=== PATIENT | male | born 1950 | race Caucasian/White ===

== ENCOUNTER 2023-03-27 14:05 | Outpatient (OUT) | payer MEDICARE, SELFPAY ==
--- NOTE | 2023-03-27 14:23 | XR_ITS ---
[address] [address] Patient Name: JUAN STACY MRN: [id number] date: 1950 Sex: M [facility] Current Patient Location: Accession/Order Number: [id number] Exam Date: 03/27/2023 15:10 Report Date: 03/28/2023 08:16 At the request of: KASI GARZA Procedure: XR chest 2V EXAMINATION: XR chest 2V HISTORY: PRE OP EXAM COMPARISON: 12/25/2020 TECHNIQUE: PA and lateral FINDINGS: LUNGS: No significant pulmonary parenchymal abnormalities. VASCULATURE: No increased pulmonary vasculature. PLEURA: No pneumothorax, effusion, or pleural thickening. CARDIAC: No cardiomegaly or cardiac silhouette abnormality. MEDIASTINUM: No visible mass or adenopathy. Median sternotomy wires BONES: No fracture or visible bone lesion. OTHER: Negative. XR/XR chest 2V IMPRESSION: No acute cardiopulmonary process Electronically authenticated by: LAURA TAN Date: 03/28/2023 08:16
--- NOTE | 2023-03-27 14:23 | ECG_ITS ---
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
--- NOTE | 2023-03-27 14:57 | P.GSHP_ITS ---
History of Present Illness History of Present Illness Chief complaint: bladder tumor Narrative: Patient presents for preadmission testing. The patient states he had a follow-up with Dr. Ferguson it was determined that he had a recurrence of bladder cancer. The patient states he has not had any urinary complaints, no nausea, vomiting, fever, hematuria, dysuria, or any other complaints. Review of Systems ROS Narrative REVIEW OF SYSTEMS: Negative except as stated in HPI, ten or more systems reviewed. Constitutional: No fever , chills, weakness ENT: No sore throat or epistaxis Cardiovascular: No edema, chest pain, palpitations, or activity intolerance Respiratory: No shortness of breath, cough, or wheezing Musculoskeletal: No joint pain or swelling Gastrointestinal: No abdominal pain, constipation, diarrhea, or vomiting Genitourinary: No dysuria or hematuria Neurological: No numbness, tingling, weakness, or headache Psychiatric: No mood changes [facility] Medical History (Updated 03/27/23 @ 14:48 by Ronel Alberto NP) (11/07/21) Surgical History (Updated 03/27/23 @ 14:48 by Ronel Alberto NP) (11/07/21) Family History (Updated 03/27/23 @ 14:45 by Ronel Alberto NP) Other Asthma Family history of breast cancer Family history of diabetes mellitus Family history of heart disease Family history of hypertension Family history of myocardial infarction Family history of stroke Social History (Updated 03/27/23 @ 14:40 by Ronel Alberto NP) Within the past year, how often did you have a drink containing alcohol: never Score interpretation: A score less than 4 is consistent with normal alcohol consumption. Smoking status: Former smoker Highest level of school completed/degree received: high school graduate Meds Home Medications and Allergies Home Medications Medication Instructions Recorded Confirmed Type atorvastatin 40 mg tablet 40 mg PO DAILY 03/27/23 03/27/23 History clopidogrel 75 mg tablet (Plavix) 75 mg PO DAILY 03/27/23 03/27/23 History ferrous sulfate 325 mg (65 mg 325 mg PO DAILY 03/27/23 03/27/23 History iron) tablet (Feosol) glipizide 10 mg tablet 10 mg PO DAILY 03/27/23 03/27/23 History lactobacillus combination no.4 3 3,000 mmu cells PO DAILY 03/27/23 03/27/23 History billion cell capsule (Probiotic) magnesium oxide 400 mg PO DAILY 03/27/23 03/27/23 History metformin 1,000 mg tablet 1,000 mg PO BID 03/27/23 03/27/23 History metoprolol tartrate 25 mg tablet 25 mg PO BID 03/27/23 03/27/23 History oxybutynin chloride 5 mg 5 mg PO DAILY 03/27/23 03/27/23 History tablet,extended release 24 hr (Ditropan XL) Allergies Allergy/AdvReac Type Severity Reaction Status Date / Time No Known Drug Allergies Allergy Verified 03/27/23 14:27 Exam Narrative Exam Narrative: Constitutional: Awake, alert, comfortable, well-appearing, nontoxic, interactive, vital signs as charted Head: Normocephalic, atraumatic Neck: Supple, normal appearance, normal range of motion, no meningeal signs, no lymphadenopathy Respiratory: No respiratory distress, breath sounds clear Cardiovascular: Regular rate and rhythm, strong and regular heart tones Abdomen: Nontender, normal bowel sounds, soft, no CVA tenderness Musculoskeletal: Normal gait, no swelling or edema Skin: Pale. No rashes or induration, no lesions, only visible skin inspected Neuro: No neurological deficits, normal sensation Psychiatric: Oriented ?3, normal affect Assessment and Plan Assessment and Plan (1) Urothelial carcinoma of kidney: (2) Lesion of bladder: (3) Bladder cancer: Plan Cystoscopy, TURBT, possible laser ablation, left stent placement, installation of mitomycin scheduled with Dr. Patricio 04/02/2023.
[2023-03-27 15:17] LABS: Basophils Percent Auto 0.8 % (0.2-2.0); Eosinophils Absolute Auto 0.2 10^3/uL (0.0-0.7); Eosinophils Percent Auto 3.3 % (0.9-7.0); Hematocrit 36.4 % (42.0-54.0); Hemoglobin 11.9 g/dL (14.0-18.0); Immature Granulocytes Abs Auto 0.04 10^3/uL (0.00-0.03); Immature Granulocytes Pct Auto 0.8 % (0.0-0.5); Lymphocytes Absolute Auto 1.2 10^3/uL (1.2-3.8); Lymphocytes Percent Auto 23.9 % (20.5-60.0); Mean Corpuscular HGB Conc 32.7 g/dL (29.9-35.2); Mean Corpuscular Hemoglobin 31.6 pg (25.9-34.0); Mean Corpuscular Volume 96.6 fL (80.0-94.0); Mean Platelet Volume 9.1 fL (9.5-13.5); Monocytes Absolute Auto 0.6 10^3/uL (0.3-0.8); Monocytes Percent Auto 11.9 % (1.7-12.0); Neutrophils Absolute Auto 2.9 10^3/uL (1.4-6.5); Neutrophils Percent Auto 59.3 % (43.0-75.0); Platelet Count 320 10^3/uL (150-450); Red Blood Count 3.77 10^6/uL (4.70-6.10); Red Cell Distribution Width 13.2 % (11.0-15.0); White Blood Count 4.8 10^3/uL (4.0-11.0)
[2023-03-27 15:21] LABS: Anion Gap 13.6; Calcium 9.4 mg/dL (8.5-10.1); Carbon Dioxide 23.6 mmol/L (21.0-32.0); Chloride 100 mmol/L (98-107); Estimated GFR (African America >60 (>=60); Estimated GFR (Non-African Ame >60 (>=60); Glucose 171 mg/dL (74-106); Potassium 4.2 mmol/L (3.5-5.1); Sodium 133 mmol/L (136-145)
[2023-03-27 15:39] LABS: Partial Thromboplastin Time 28.4 sec (22.3-36.2); Prothrombin Time 9.8 sec (9.0-11.6)
[2023-03-27 15:41] LABS: INR <0.93
== END 2023-03-27 14:06 | disposition home or self-care (01) ==
LOC: PST 14:09
PROVIDERS: PCP Family Medicine; Visit Provider Urology
DX: Z01.818 Encounter for other preprocedural examination (principal); Z01.812 Encounter for preprocedural laboratory examination; Z01.810 Encounter for preprocedural cardiovascular examination; C67.9 Malignant neoplasm of bladder, unspecified; C64.9 Malignant neoplasm of unspecified kidney, except renal pelvis; E11.9 Type 2 diabetes mellitus without complications; Z79.01 Long term (current) use of anticoagulants; I25.2 Old myocardial infarction; R94.31 Abnormal electrocardiogram [ECG] [EKG]; N32.9 Bladder disorder, unspecified
CPT/HCPCS: 36415; 71046; 80048; 85025; 85610; 85730; 93005; G0463

== ENCOUNTER 2023-04-02 12:24 | Day surgery (SDC) | payer MEDICARE, SELFPAY ==
[2023-03-27 14:55] VITALS: BP 125/76; PULSE 70; RESP 16; TEMP 36.8; O2SAT 96; BMI 24.1
[2023-04-02] VITALS (15 sets, daily range): BP systolic 134–168; BP diastolic 72–90; PULSE 59–82; RESP 16–24; TEMP 35.9–36.3; O2SAT 93–99; BMI 24.8
[2023-04-02] MEDS: LACTATED RINGER'S SOLUTION 1,000 ML 50 ML IV ×2 (12:51→14:53)
[2023-04-02] MEDS: CEFAZOLIN SODIUM/DEXTROSE,ISO 2 GM/50 ML PIGGYBACK IV (14:50)
--- NOTE | 2023-04-02 14:51 | PM.URSON ---
Urology Surgery Operative Note Operative Note Procedure Date: 04/02/23 Time Out Performed: yes Pre-op Diagnosis: 1. Recurrent urothelial bladder cancer 2. History of left upper tract urothelial carcinoma 3. Left hydronephrosis of inferior calyx Post-op Diagnosis: other (1. Recurrent urothelial bladder cancer 2. History of left upper tract urothelial carcinoma 3. Left inferior infundibular stenosis of kidney) Procedures performed: 1. Cystoscopy, transurethral resection of bladder tumor (total 3-4 cm resected) 2. Left retrograde pyelogram, left ureteroscopy with laser ablation of inferior pole stricture, stent placement 3. Intravesical mitomycin C instillation Anesthesia: GETA (ETT, Dr. Dukes) Primary Surgeon: Dayanara Patricio Complications: none Estimated blood loss (mL): 0 Findings: -Severe bilobar hypertrophy with elevated bladder neck. 1+ trabeculated bladder. - 4 papillary bladder tumors with exudate/fibrinous debris on the superior wall (1.5x1 cm), dome (<1x1 cm), right anterior wall (5x5 mm), left inferior lateral wall (1x1 cm) all resected and fulgurated. - L RPG with mild distal narrowing, kinked but patent proximal ureter and filling defect of lower pole calyx. No significant hydronephrosis - L URS without recurrence. Tortuous proximal ureter with lateral divot in ureter without exstravastion or tumor. Stenotic left inferior infundibulum without visible tumor, hairline passage of contrast. Attempted holmium laser of stenosis however due to acute angle, unable to fully incise to open up stenosis. Specimens: 1. Bladder tumors 2. Urine for cytology Drains: 18Fr coude catheter, 4.8Fr x 22-30 cm JJ left ureteral stent Indications for Procedures: 72 year old male diagnosed 01/2022 with intermediate risk, recurrent low grade Ta papillary urothelial carcinoma of the bladder s/p TURBTs and induction/maintenance gemcitabine, and left upper tract urothelial carcinoma s/p laser ablation and induction Jelmyto (last 05/2022). He was noted to have multifocal bladder recurrence on last surveillance cystoscopy 03/25/23. CT Urogram 01/31/23 showed delayed nephrogram with dilation of inferior left renal pole calyces representing obstruction from infundibular stenosis vs mass. After discussion of risks/benefits of management options, he elected to proceed today for cystoscopy, TURBT, intravesical mitomycin C instillation, left RPG, ureteroscopy with possible biopsy/laser ablation, possible stent. Risks were discussed including but not limited to bleeding, pain, infection, damage to surrounding structures, inability to treat the tumor/place a stent, and need for additional procedures. The patient understands the stent is not permanent and needs to be removed or exchanged within 3 months to prevent encrustation, infection, invasive procedures and/or permanent renal damage. Detailed description of Procedure: After informed consent was obtained, the patient was brought to the operating room and transferred onto the operating table in supine position. Sequential compression devices were placed on bilateral lower extremities. The patient received the appropriate dose of preoperative IV antibiotics and general anesthesia ET tube was induced. They were positioned in modified dorsolithotomy with the appropriate pressure points padded, prepped, and draped in the usual sterile fashion for this procedure. An operative safety timeout was performed confirming the patient's identity, laterality and procedure, and all present agreed to proceed. I began by inserting a 22 [place] rigid cystoscope into the patient's bladder and performed a thorough cystoscopy with both the 30 and 70 degree lens with the findings as above. The urethra appeared to be normal without evidence of strictures or abnormalities. Bilateral ureters were seen in orthotopic position effluxing urine. Urine was collected for cytology. The cystoscope was removed and a 26 [place] resectoscope was inserted. Bipolar loop electrocautery was used to fully resect the tumors, taking care to obtain muscle in the specimen. Specimens were sent for pathology. Hemostasis was obtained with electrocautery. The bladder was drained and inspected. There was no evidence of any bleeding from the resection beds. I returned to the rigid cystoscope and turned my attention to the left ureteral orifice. A 6- [place] open-ended catheter was inserted into the ureteral orifice and dilute contrast was injected for retrograde pyelogram with findings above. A sensor wire was inserted into the ureter up to the renal pelvis confirmed on fluoroscopy. Next a flexible ureteroscope was inserted over the wire and advanced to the midureter under fluoroscopic guidance, advanced under direct visualization into the renal pelvis. A full renoscopy was performed confirming no tumors or stones, findings as above. A 272 ?m holmium laser fiber was used try and open the stenotic lower infundibulum. Due to the acute angle, circumferential incision was unsuccessful, only part of the scar tissue was incised. Ureteroscope was unable to be advanced into this calyx. The wire was reinserted and a pull down ureteroscopy was performing confirming no tumors were noted. The wire was backloaded through the cystoscope and 4.8Fr x 22-30cm JJ variable length ureteral stent was advanced over the wire, noting adequate curl in the renal pelvis and bladder on fluoroscopic and direct visualization. The bladder was drained and inspected one final time to ensure adequate position of stent and no undue trauma to the bladder was done. The cystoscope was removed and a 18-Gib[place] two way Coude catheter was inserted without difficulty, irrigated until clear. The abdomen was soft and nondistended. 40mg of Mitomycin C in 40ml sterile water was instilled into the bladder and capped. The patient tolerated the procedure well without complication. Patient was extubated and sent to PACU for recovery. Plan: Drain bladder after 1 hour dwell time. Follow up in 5 days for cysto, stent and jimenez removal in the office. Will review pathology and next steps. Will discuss with oncologist Dr. Arenas regarding induction gemcitabine/docetaxel intravesical therapy for recurrent low grade NMIBC. Other Provider present: No Post Operative care instructions: see dc instructions Attending Doc Confirm Attending Attestation: Yes
[2023-04-02] MEDS: IOHEXOL 300 MG/ML - 50 ML BTL INJ (15:46)
[2023-04-02] MEDS: MITOMYCIN INTRAVESIC (16:30)
[2023-04-02] MEDS: WATER FOR INJECTION STERILE INTRAVESIC (16:30)
--- NOTE | 2023-04-02 16:45 | PC.NURSE ---
urine for cytology sent
[2023-04-02] MEDS: HYDROMORPHONE HCL 0.5 MG/0.5 ML SYRINGE IV ×2 (17:03→17:08)
[2023-04-02] MEDS: MORPHINE SULFATE 4 MG/ML VIAL 2 MG IV (17:14)
[2023-04-02] MEDS: PHENAZOPYRIDINE 100 MG TABLET 200 MG PO (17:32)
[2023-04-02] MEDS: OXYBUTYNIN CHLORIDE 5 MG TAB XL PO (17:33)
[2023-04-03 08:15] LABS: Glucometer 183 mg/dL (74-106)
== END 2023-04-02 18:14 | disposition home or self-care (01) ==
PROVIDERS: PCP Family Medicine; Visit Provider Urology
PROC: (CPT 52235; principal; 2023-04-02 13:30)
DX: C67.9 Malignant neoplasm of bladder, unspecified (principal); C64.9 Malignant neoplasm of unspecified kidney, except renal pelvis; E11.9 Type 2 diabetes mellitus without complications; Z79.01 Long term (current) use of anticoagulants; I25.2 Old myocardial infarction; Z87.891 Personal history of nicotine dependence; Z79.84 Long term (current) use of oral hypoglycemic drugs; Z79.899 Other long term (current) drug therapy; N40.1 Benign prostatic hyperplasia with lower urinary tract symptoms; E78.00 Pure hypercholesterolemia, unspecified; Z87.442 Personal history of urinary calculi; R35.1 Nocturia; I10 Essential (primary) hypertension; Z86.73 Personal history of transient ischemic attack (TIA), and cerebral infarction without residual deficits; I25.5 Ischemic cardiomyopathy; Z95.1 Presence of aortocoronary bypass graft; N13.30 Unspecified hydronephrosis
CPT/HCPCS: 52235; 52332; 36415; 74420; 82948; 88112; 88307; C1874; J1170; J2704; J9280; Q9967